=== PATIENT | male | born 1950 | race Caucasian/White ===

== ENCOUNTER 2017-02-19 07:13 | Inpatient (IN) | payer OTHER, BC ==
--- NOTE | 2017-01-17 09:49 | History and Physical ---
History & Physical Date Jan 17, 2017. Chief Complaint left knee pain History of Present Illness The patient is a 66 year old male with complaints of left knee pain, presents for preoperative evaluation prior to a Left knee replacement. Patient states that they have been having pain in this knee for many years now, which has gradually worsened, it has now gotten to the point it is affecting his daily activities including walking, standing, going up and down steps. Patient has tried and failed conservative measures including previous viscosupplementation, and PO NSAIDs with no relief. At this point in time, patient has failed conservative measures and would like to proceed with a left knee replacement. Past Medical/Surgical History Past Medical History 1. High Cholesterol 2. Hypertension 3. Insomnia Past Surgical History 1. previous knee arthroscopy 2. Hernia repair 3. appendectomy 4. left wrist fracture Home Medications: Adherence Medication Name Sig Desc Elsewhere Status taking as directed pravastatin 80 mg tablet take 1 tablet by oral route every day Y Verified taking as directed Vitamin D3 take 1 Capsule by Oral route every day Y Verified taking as directed melatonin Y Verified taking as directed Fish Oil Y Verified taking as directed ATIVAN take 2 tablet by oral route 3 times every day as needed Y Verified taking as directed aspirin 81 mg tablet,delayed release take 1 tablet by oral route every day Y Verified taking as directed Advil take 2 tablet by oral route every 6 hours as needed with food Y Verified Additional History Hepatic Disease: No Endocrine Disorder: No Kidney Disease: No Hypertension: Yes Heart Disease: No Bleeding Tendencies: No Infectious Diseases: No Allergies Coded Allergies: No Known Allergies (Unverified , 01/17/17) Physical Examination Skin: warm/dry, no rash Eyes: normal inspection, EOMI, sclerae normal ENT: normal ENT inspection, pharynx normal Head: normocephalic, atraumatic Neck: supple, no adenopathy, trachea midline Respiratory/Chest: lungs clear, normal breath sounds, no respiratory distress Cardiovascular: regular rate, rhythm, no edema, no murmur Addiitonal Comments: Left Knee Exam: Knee ROM R * Active ROM - Flexion: 100 degrees, Extension: 5 degrees, Factors: pain, Description: Active painful ROM. Knee * Inspection - Gait: Limp. Alignment - Right: neutral. Ecchymosis - Right: negative. Effusion - Right: mild. Swelling - Right: mild. Maximum tenderness - Right: Medial Joint Line. Patella exam - Crepitation - Right: mild. Patella position - Right: neutral. Knee Normal Inspection - Atrophy - Right: Absent. Skin - Right: Normal. Patella exam - Apprehension - Right: Negative. Q-angle - Right: Normal. Posterior drawer - Right: Negative. Anterior drawer - Right: Negative. Left Knee Xray: Xrays reviewed of the left knee showing findings consistent with degenerative joint disease including joint space narrowing, subchondral sclerosis and peripheral osteophyte formation. no acute bony pathology, overall varus alignment. Impression: degenerative joint disease of the left knee with no acute bony pathology noted. Diagnosis Left Knee Osteoarthritis -Further care discussed with patient and at this point in time has failed conservative measures and would like to proceed with a left total knee replacement. Plan on discharge will be home with home physical therapy. DVT prophalaxis with TEDs, SCDs and will also place on aspirin 81 mg p.o. b.i.d. for a month postop. Patient will have follow up appointment in our office two weeks post op for staple/suture removal and re-evaluation. Patient otherwise has no other questions or concerns. Past Medical History as outlined above
[2017-01-17 11:43] VITALS: BMI 39.0
--- NOTE | 2017-01-17 12:29 | PAT Medication Instructions ---
Service Date Jan 17, 2017. Current Home Medication List Aspirin (Aspirin Ec), 81 MG PO QAM Calcium Carbonate (Tums), 1 TAB PO PRN Cholecalciferol (Vitamin D3), 1 TAB PO QAM Fish Oil (Hull-3), 1 CAP PO QAM Lorazepam (Ativan), 0.5 MG PO PRN Melatonin (Kp Melatonin), 3-5 MG PO HS PRN for RN Polyethylene Glycol-Propylene (Systane), 1 DROPS OP PRN Pravastatin (Pravachol ), 80 MG PO QAM Medication Instructions For Your Scheduled Surgery - Hold the following medications 2 weeks prior to surgery: Fish Oil (Hull-3), 1 CAP PO QAM - Hold the following medications the morning of surgery: Calcium Carbonate (Tums), 1 TAB PO PRN Cholecalciferol (Vitamin D3), 1 TAB PO QAM - Take the following medications the morning of surgery with a sip of water: Pravastatin (Pravachol ), 80 MG PO QAM Polyethylene Glycol-Propylene (Systane), 1 DROPS OP PRN Lorazepam (Ativan), 0.5 MG PO PRN (if needed) Aspirin (Aspirin Ec), 81 MG PO QAM - Take the following medications as scheduled the night before surgery: Polyethylene Glycol-Propylene (Systane), 1 DROPS OP PRN Melatonin (Kp Melatonin), 3-5 MG PO HS PRN for RN Lorazepam (Ativan), 0.5 MG PO PRN (if needed) Calcium Carbonate (Tums), 1 TAB PO PRN If you have any questions please call us at [phone] or [phone] ( [place]ania) or [phone]
[2017-01-17 12:57] LABS: BASO % 0.3 %; BASO ABS # 0.02 K/uL (0-0.2); COMPLETE YES; EOS % 2.4 %; HEMATOCRIT 44.2 % (42-52); IG% 0.3 %; LYMPH % 31.2 %; LYMPH ABS # 2.17 K/uL (1.2-3.4); MEAN CELL VOLUME 90.4 fL (80-100); MEAN CORPUSCULAR HEMOGLOBIN 32.1 pg (25-34); MEAN CORPUSCULAR HGB CONC 35.5 g/dl (32-36); MEAN PLATELET VOLUME 10.9 fL (7.4-10.4); MONO % 9.9 %; NEUT % 55.9 %; PLATELET COUNT 165 K/uL (130-400); RED BLOOD COUNT 4.89 M/uL (4.7-6.1); WHITE BLOOD COUNT 6.95 K/uL (4.8-10.8)
[2017-01-17 13:00] LABS: URINE APPEARANCE CLEAR (CLEAR); URINE BILIRUBIN NEG (NEG); URINE COLOR YELLOW; URINE NITRITE NEG (NEG); URINE SPECIFIC GRAVITY 1.012 (1.000-1.030); UROBILINOGEN NEG (NEG); ZZUR CULT IF INDIC CLEAN CATCH NO
--- NOTE | 2017-01-17 13:05 | DIAGNOSTIC IMAGING REPORT ---
TWO VIEW CHEST CLINICAL HISTORY: Preoperative examination. FINDINGS: PA and lateral chest radiographs are compared to study dated 01/04/2015. The heart is top normal for projection. The examination is degraded by large body habitus. The lungs and pleural spaces are clear. There is no pneumothorax. The bony thorax appears intact. Mild degenerative changes noted in the thoracic spine. IMPRESSION: No active disease in the chest. Electronically signed by: Kin Vasquez M.D. 01/17/2017 1:04 PM Dictated Date/Time: 01/17/2017 1:03 PM
[2017-01-17 13:08] LABS: PROTHROMBIN TIME (PATIENT) 10.6 SECONDS (9.0-12.0)
[2017-01-17 13:15] LABS: BUN/CREATININE RATIO 21.4 (10-20); CALCIUM 8.7 mg/dl (8.5-10.1); CREATININE 0.94 mg/dl (0.60-1.40); POTASSIUM 4.1 mmol/L (3.5-5.1)
[2017-01-17 13:24] LABS: MANUAL MICROSCOPIC REQUIRED? NO; REVIEW REQ? NO
--- NOTE | 2017-02-11 10:36 | Anesthesiology Progress Note ---
Anesthesia Progress Note Date of Service Feb 11, 2017. Progress Notes Patient called in today stating that he has a cold. Congestion and cough started 02/08. PCP prescribed z-pack which he will be finishing today. He states he has had significant improvement in symptoms at this time. Mild residual non- productive cough. He denies chest pain, shortness of breath, fever, chills. Patient states he will contact PAT if symptoms worsen prior to surgery. Patient made aware that anesthesia will reevaluate patient AM of surgery.
[~2017-02-19] VITALS: Ht 170.2 cm; Wt 113.8 kg
[2017-02-19] VITALS (9 sets, daily range): BP systolic 109–151; BP diastolic 69–84; PULSE 63–91; TEMP 36.4–36.7; O2SAT 93–97; Ht 170.2 cm; Wt 113.8 kg
--- NOTE | 2017-02-19 06:53 | History & Physical Bridge Note ---
H&P Re-Evaluation Bridge Note: I have examined the patient, reviewed the History & Physical and in the interval since the performance of the History & Physical I have noted the following changes of clinical significance: No changes noted
[~2017-02-19 07:13] MED LIST: ACETAMINOPHEN 500 MG TAB PO SCH; ASPI81TA28 PO; ATV/1 PO; BUPIVACAINE 0.5 % 5 MG/1 ML PF 10ML VIAL ONE; CALC500C3 PO; CEFAZOLIN 3000 MG/65 ML D5W 65 ML IV SCH; CHOL1000 PO; CeleBREX 200 MG CAP PO SCH; DEXAMETHASONE 4 MG TAB PO SCH; FAMOTIDINE 20 MG TAB PO SCH; GABAPENTIN 300 MG CAP PO SCH; LACTATED RINGER'S 1000ML 1,000 ML IV SCH; LACTATED RINGER'S 1000ML 500 ML IV ONE; LACTATED RINGER'S 1000ML IV SCH; MELA1TAB5 PO; METOCLOPRAMIDE HCL 10 MG TAB PO SCH; OMEG10007 PO; POLYSOL4 OP; PRAV20TA PO; ROPIVACAINE 5MG/ML 30 ML 150 MG, BUPIVACAINE/EPINEPHR 0.5% MPF 30 ML, KETOROLAC TROMETH... INFIL SCH
[2017-02-19] MEDS ORDERED: MIDAZOLAM HCL 1 MG/ML 2ML VIAL ONE ×2 (07:31→08:31)
[2017-02-19] MEDS ORDERED: FENTANYL CITRATE INJ 50 MCG/1 ML 2 ML VIAL ONE (07:31)
[2017-02-19] MEDS ORDERED: LIDOCAINE HCL 2% 2 ML VIAL (20MG/ML) ONE (07:31)
[2017-02-19] MEDS ORDERED: PROPOFOL IV EMULSION 10 MG/ML 20 ML VIAL IV ONE (07:31)
[2017-02-19] MEDS ORDERED: MoRPHine SULFATE 10 MG/ML CARP/VIAL IV PRN ×2 (08:15→12:45)
[2017-02-19] MEDS ORDERED: MEPERIDINE HCL 25 MG/ML CARP IV PRN (08:15)
[2017-02-19] MEDS ORDERED: ONDANSETRON INJ 2 MG/ML 2 ML VIAL IV PRN ×2 (08:15→11:00)
[2017-02-19] MEDS ORDERED: ATROPINE SULFATE 0.1 MG/ML 5ML SYR IV PRN (08:15)
[2017-02-19] MEDS ORDERED: FENTANYL CITRATE INJ 50 MCG/1 ML 2 ML VIAL IV PRN (08:15)
[2017-02-19] MEDS ORDERED: EpHEDrine SULFATE INJ 50 MG/ML AMP IV PRN (08:15)
[2017-02-19] MEDS: TRANEXAMIC ACID INJ 1,000 MG in SODIUM CHLORIDE 0.9% 100ML 100 ML IV SCH ×2 (08:48→13:37)
[2017-02-19] MEDS ORDERED: ORTHO JOINT ANESTHETIC ONE (08:48)
[2017-02-19] MEDS ORDERED: POVIDONE-IODINE OP SOLN 30 ML BTL ONE (08:48)
[2017-02-19] MEDS ORDERED: BACITRACIN 50000 UNIT VIAL ONE (08:49)
--- NOTE | 2017-02-19 09:35 | Anesthesiology Progress Note ---
Anesthesia Progress Note Date of Service Feb 19, 2017. Progress Notes Spoke with patient and reviewed H/P taken in PAT. He seemed frustrated with the preop process. Attempted to ease his frustration, but he states "This is not on my agenda for today." I told him that I didn't understand what he meant by that but he then stated "nevermind." Consent was obtained for spina/block/ sedation with GA b/u. Spinal performed per anes record, but despite +CSF at depth of 4" the spinal failed, converted to GA with LMA. Adductor block was performed in preop. Surgeon aware of patient's frustration with process.
--- NOTE | 2017-02-19 10:13 | [facility] Post Operative Brief Note ---
Immediate Operative Summary Operative Date Feb 19, 2017. Pre-Operative Diagnosis Left Knee Degenerative Joint Disease Post-Operative Diagnosis Same as preoperative Procedure(s) Performed Left Total Knee Arthroplasty, Cemented Surgeon Dr. Ellis Gaston Grain Packer Surgeon(s) Javier Castillo PA-C Estimated Blood Loss 10ml Findings severe djd with varus deformity Specimens A.) Left knee bone and tissue Complication(s) None Disposition Recovery Room / PACU
[2017-02-19] MEDS ORDERED: ONDANSETRON INJ 2 MG/ML 2 ML VIAL ONE (10:20)
--- NOTE | 2017-02-19 10:50 | OPERATIVE REPORT ---
DATE OF OPERATION: 02/19/2017 PREOPERATIVE DIAGNOSIS: Severe end-stage tricompartmental degenerative joint disease, left knee. POSTOPERATIVE DIAGNOSIS: Severe end-stage tricompartmental degenerative joint disease, left knee. PROCEDURE: Left total knee arthroplasty utilizing Quintana \T\ Nephew nonblock total knee arthroplasty size 8 femur, 7 tibia, 9 poly, 35 oval patella. SURGEON: Dr. Gaston. FOOD COUNTER WORKER: Javier Castillo PA-C who was necessary for prepping, draping, retraction, and wound closure, deep fascia, subQ and skin and was necessary for the case. COMPLICATIONS: None. ESTIMATED BLOOD LOSS: 10 mL. TOURNIQUET TIME: 45 minutes. HISTORY: The patient presents as a very pleasant 66-year-old white male with severe end-stage DJD and varus alignment of his knee, presents for total knee arthroplasty after discussing risks, complications of the procedure. DESCRIPTION OF PROCEDURE: The patient was properly prepped and draped in supine position for total knee arthroplasty after identifying the appropriate surgical site. An anterior midline incision was made through the subcutaneous tissues down to the region of the extensor mechanism. A medial parapatellar incision was subsequently made. Meticulous hemostasis was obtained and performed at all times. The patella having been subluxed lateralward, medial and lateral meniscal remnants were excised. The patellar cut was then initially made and was sized to the appropriate size. After subluxing the tibia forward the appropriate meniscal fragments having been removed the distal femur was then cut first utilizing a Quintana and Nephew block. The distal femoral cuts and chamfer cuts were all made under direct visualization and the proximal tibial osteotomy cut was also made utilizing Quintana and Nephew blocks and checked with an extramedullary guide. The appropriate trial components on the femur and tibia were placed. Appropriate trial spacers were used to check flexion and extension gaps. With flexion and extension gaps being equal, the components were then subsequently after thorough irrigation and debridement lavage components were then subsequently cemented in the following order: femur, tibia and patella. Exparel was used for intraoperative anesthesia, the medial parapatellar incision was closed utilizing #1 Vicryl, subQ was closed with 2-0 Vicryl, skin was closed with skin clips. A sterile compression dressing was placed. The patient was taken to the recovery room in stable condition. Due to the complex nature of the procedure, the entire surgery was performed with the operational assistance of Javier Castillo PA-C. The assistant tennis coach, under direct supervision, was involved in the actual performance of all aspects of the surgical procedure including hemostasis, tissue retraction and incision, instrument management, patient positioning, and wound closure. I attest to the content of the Intraoperative Record and any orders documented therein. Any exceptio ns are noted below.
[2017-02-19] MEDS ORDERED: CALCIUM CARBONATE 500 MG CHEWABLE PO PRN (11:00)
[2017-02-19] MEDS ORDERED: KETOROLAC TROMETHAMINE 15 MG/ML VIAL IV. PRN (11:00)
[2017-02-19] MEDS ORDERED: ALUMINUM/MAGNESIUM/SIMETH (MAALOX MAX) 30 ML UDC PO PRN (11:00)
[2017-02-19] MEDS ORDERED: MoRPHine SULFATE 2 MG/ML CARP IV PRN (11:00)
[2017-02-19] MEDS ORDERED: MAGNESIUM HYDROXIDE SUSP 30 ML UDC PO PRN (11:00)
[2017-02-19] MEDS ORDERED: BISACODYL 10 MG SUPP PR PRN (11:00)
[2017-02-19] MEDS ORDERED: SOD PHOSPHATE/SOD BIPHOSPHATE ENEMA 132 ML BTL PR PRN (11:00)
[2017-02-19] MEDS ORDERED: LORAZEPAM 0.5 MG TAB PO PRN (11:00)
--- NOTE | 2017-02-19 11:25 | DIAGNOSTIC IMAGING REPORT ---
LEFT KNEE 1 OR 2 VIEWS ROUTINE CLINICAL HISTORY: Degenerative arthritis. Postop study COMPARISON: 01/05/2016 DISCUSSION: There are postsurgical changes of a total left knee arthroplasty and patellar resurfacing. There is a suprapatellar joint effusion. There is air in the soft tissues consistent with recent surgery. There are overlying surgical drains. There are no acute fractures. IMPRESSION: Postsurgical changes of a total left knee arthroplasty Electronically signed by: Tereso Solo M.D. 02/19/2017 11:23 AM Dictated Date/Time: 02/19/2017 11:23 AM
--- NOTE | 2017-02-19 11:45 | Anesthesiology Progress Note ---
Anesthesia Post Op Note Date & Time Feb 19, 2017 at 11:45 Vital Signs Pain Intensity: 0 Vital Signs Past 12 Hours Date Time Temp Pulse Resp B/P Pulse Ox O2 Delivery O2 Flow Rate FiO2 02/19/17 11:40 80 19 117/78 92 Nasal Cannula 02/19/17 11:30 82 14 126/76 96 Nasal Cannula 02/19/17 11:20 76 14 147/72 92 Nasal Cannula 02/19/17 11:10 81 13 132/79 98 Mask 10 02/19/17 11:00 85 12 121/71 98 Mask 10 02/19/17 10:50 36.2 91 14 115/69 95 Mask 10 02/19/17 07:42 36.7 85 18 151/82 94 Room Air Notes Mental Status: alert / awake / arousable, participated in evaluation Pt Amnestic to Procedure: Yes Nausea / Vomiting: adequately controlled Pain: adequately controlled Airway Patency, RR, SpO2: stable & adequate BP & HR: stable & adequate Hydration State: stable & adequate Neuraxial Anesthesia: was administered, sensory block resolved Anesthetic Complications: no major complications apparent Anesthetic Complications: failed SAB, GA LMA administered.
[2017-02-19] MEDS ORDERED: MoRPHine SULFATE 4 MG/ML 1 ML CARP\\VIAL IV PRN (12:45)
[2017-02-19] MEDS ORDERED: ARTIFICIAL TEARS OP SOLN OP PRN ×2 (12:45)
[2017-02-19] MEDS: D5W AND 1/2NSS + 20MEQ KCL 1,000 ML IV SCH ×2 (13:41→22:13)
[2017-02-19] MEDS: ACETAMINOPHEN 500 MG TAB PO SCH ×2 (15:00→22:12)
[2017-02-19] MEDS: CEFAZOLIN IV 2,000 MG in DEXTROSE 5% 50ML 50 ML IV SCH (15:58)
[2017-02-19] MEDS: OXYCODONE HCL IR 5 MG TAB (IMMEDIATE RELEASE) PO PRN (18:12)
[2017-02-19] MEDS ORDERED: SENNA 8.6 MG TAB PO SCH (21:00)
[2017-02-19] MEDS: OXYCODONE HCL 10 MG TABCR (OXYCONTIN) PO SCH (21:00)
[2017-02-19] MEDS: ASPIRIN 81 MG ECTAB PO SCH (21:20)
[2017-02-19] MEDS: DOCUSATE SODIUM 100 MG CAP PO SCH (21:20)
[2017-02-20] MEDS: CEFAZOLIN IV 2,000 MG in DEXTROSE 5% 50ML 50 ML IV SCH (00:11)
[2017-02-20] MEDS ORDERED: NURSING VERBAL MED ORDER ONE (01:30)
[2017-02-20] MEDS ORDERED: ZOLPIDEM TARTRATE 5 MG TAB ONE (01:41)
[2017-02-20] MEDS ORDERED: ZOLPIDEM TARTRATE 5 MG TAB PO PRN (01:45)
[2017-02-20 03:20] VITALS: BP 126/68; PULSE 72; TEMP 36.6; O2SAT 93
[2017-02-20] MEDS: OXYCODONE HCL IR 5 MG TAB (IMMEDIATE RELEASE) PO PRN ×2 (05:04→09:06)
[2017-02-20] MEDS: ACETAMINOPHEN 500 MG TAB PO SCH (05:49)
[2017-02-20 06:56] LABS: PROTHROMBIN TIME (PATIENT) 10.8 SECONDS (9.0-12.0)
[2017-02-20 07:11] LABS: BUN/CREATININE RATIO 14.6 (10-20); CALCIUM 8.2 mg/dl (8.5-10.1); POTASSIUM 4.5 mmol/L (3.5-5.1)
[2017-02-20 07:20] VITALS: BP 127/73; PULSE 72; TEMP 36.4; O2SAT 91
[2017-02-20 07:34] LABS: HEMATOCRIT 37.3 % (42-52); MEAN CELL VOLUME 89.9 fL (80-100); MEAN CORPUSCULAR HEMOGLOBIN 31.6 pg (25-34); MEAN CORPUSCULAR HGB CONC 35.1 g/dl (32-36); MEAN PLATELET VOLUME 11.5 fL (7.4-10.4); PLATELET COUNT 169 K/uL (130-400); RED BLOOD COUNT 4.15 M/uL (4.7-6.1); WHITE BLOOD COUNT 13.62 K/uL (4.8-10.8)
--- NOTE | 2017-02-20 07:48 | Orthopedic Progress Note ---
Orthopedic Progress Note Date of Service Feb 20, 2017. Subjective Post OP Day: 1 (s/p Left TKA) Reports: feeling well, pain controlled w PO medications, Denies: SOB, calf pain , chest pain, complaints, light headedness, nausea / vomiting Objective calves soft nontender, N/V intact, capillary refill less than 2 sec., dressing C /D/I, A&O x3, toes mobile, hemovac drainage (75cc/8 hours) Date Time Temp Pulse Resp B/P Pulse Ox O2 Delivery O2 Flow Rate FiO2 02/20/17 07:20 36.4 72 17 127/73 91 Room Air 02/20/17 03:20 36.6 72 18 126/68 93 Room Air 02/20/17 00:30 Room Air 02/19/17 23:41 36.4 63 14 144/70 94 Room Air 02/19/17 19:04 91 18 148/84 93 Room Air 02/19/17 16:25 95 Room Air 02/19/17 15:15 36.6 79 18 125/71 95 Nasal Cannula 2.0 02/19/17 14:20 72 17 115/73 94 Nasal Cannula 2.0 02/19/17 13:18 90 16 109/70 94 Nasal Cannula 2.0 02/19/17 12:49 81 19 112/72 97 Nasal Cannula 2.0 02/19/17 12:20 36.5 72 16 120/69 96 Nasal Cannula 2.0 02/19/17 12:20 Nasal Cannula 2.0 02/19/17 12:20 96 Nasal Cannula 2.0 02/19/17 12:00 79 13 126/77 93 Nasal Cannula 02/19/17 11:50 36.8 74 12 118/74 95 Nasal Cannula 02/19/17 11:40 80 19 117/78 92 Nasal Cannula 02/19/17 11:30 82 14 126/76 96 Nasal Cannula 02/19/17 11:20 76 14 147/72 92 Nasal Cannula 02/19/17 11:10 81 13 132/79 98 Mask 10 02/19/17 11:00 85 12 121/71 98 Mask 10 02/19/17 10:50 36.2 91 14 115/69 95 Mask 10 Laboratory Results 24 Hours: Test 02/20/17 06:20 Hematocrit 37.3 % Hemoglobin 13.1 g/dL Prothromb Time International Ratio 1.0 Prothrombin Time 10.8 SECONDS Assessment & Plan Assessment: POD #1 s/p Left TKA -pt/ot -dvt proph with rob/scd/asa -plan for dc home after PT when stable, possibly this afternoon Discharge Planning DVT Prophylaxis: TEDs, SCDs, ASA Therapy: Physical Therapy
--- NOTE | 2017-02-20 07:49 | Discharge Instructions ---
Discharge Instructions Date of Service Feb 20, 2017. Admission Reason for Admission: Left Knee Osteoarthritis Discharge Discharge Diagnosis / Problem: Left Total Knee Replacement Discharge Goals Goal(s): Decrease discomfort, Improve function, Increase independence Activity Recommendations Activity Limitations: as noted below Weightbearing Status: Left weightbearing (as tolerated) . Instructions / Follow-Up Instructions / Follow-Up ACTIVITY RECOMMENDATIONS: SELF CARE INSTRUCTIONS AFTER TOTAL KNEE REPLACEMENT A. You may need to continue a physical therapy program after discharge from the hospital. There are several options available to you. Your doctor will assist you in selecting the best one for you. 1. An out-patient facility 2 to 3 times a week for therapy or home therapy. 2. Continue working on all exercises taught to you in the hospital. Your goals should be to increase bending of your knee to 90 degrees and beyond and to fully straighten your knee. B. You may progress at your own pace from walking with a walker or crutches to a cane; then to no assistive devices. C. Make walking a part of your daily routine. Be up as much as comfortable with rest periods throughout the day. Rest with leg elevation is very important. Use the ice wrap frequently for the first 3-4 weeks. D. There are no restrictions on activities. You may ride in a car, shop, participate in patternator and all social activities. E. Wear the long elastic stockings (JESUS hose) 20 hours a day for 2 weeks after surgery. They can be removed several times a day for laundering and for a bath. F. You may shower, no tub baths until cleared by your doctor. SPECIAL CARE INSTRUCTIONS: VERY IMPORTANT TO READ AND REVIEW A. There are a few signs you need to watch for after you are home. Call [facility] if you notice any of the followin. Increased severe knee pain. Some pain is expected especially when you exercise. 2. Increased swelling in your leg or knee; pain or swelling of the calf muscle in either lower leg. 3. Any fluid drainage from the incision. 4. Shortness of breath or chest pain. B. Please call [facility] at if you have any concerns or questions about your operation or recovery. The doctor or his nurse will return your call promptly. C. You must take antibiotics before dental work, bladder, bowel or other surgery. Your doctor will provide you with a permanent care to carry describing this precaution. IMPORTANT: * REMEMBER TO TAKE ASPIRIN, 81 MG, TWICE DAILY FOR 4 WEEKS UNLESS OTHERWISE DIRECTED. THIS IS YOUR BLOOD THINNER. * HIGH RISK PATIENTS MAY BE PRESCRIBED A STRONGER BLOOD THINNER. THIS WILL BE PROVIDED AT DISCHARGE. * CALL IF INCREASED PAIN, REDNESS, DRAINAGE OR FEVER GREATER THAT 101. * WEAR JESUS HOSE 20 HOURS PER DAY FOR 2 WEEKS. * DERMABOND Prineo- This is a mesh tape dressing that is covered with glue. It should remain in place until the incision is properly healed, usually 10-14 days. This dressing is designed to naturally slough off. You may trim the excess mesh tape as it peels off. Incision may be briefly wet in a shower. Dry immediately by blotting with a clean, dry towel. Do not bath or swim until instructed by your doctor. Do not scratch, rub, or pick at the dressing. Do not apply any topical ointments or lotions until dressing is completely removed and/or instructed by your doctor. There may be a small piece of suture material at one end of your incision. Do not pull or trim this. If it is bothersome or catching on clothing, you may cover it with a band-aid. FOLLOW UP VISIT: If appointment is not already scheduled: Please call [facility] to make a follow-up appointment for 2 weeks after your surgery at . Current Hospital Diet Patient's current hospital diet: Regular Diet Discharge Diet Recommended Diet: Regular Diet Procedures Procedures Performed: Left Total Knee Arthroplasty, Cemented Pending Studies Studies pending at discharge: no Medical Emergencies . Who to Call and When: Medical Emergencies: If at any time you feel your situation is an emergency, please call 911 immediately. . Non-Emergent Contact Non-Emergency issues call your: Primary Care Provider, Surgeon . "Provider Documentation" section prepared by Javier Castillo. VTE Core Measure Inpt VTE Proph given/why not?: Other Anticoagulation (ASA 81mg po bid x 1 month), Tay Cooper, SCD's [place] Drug Monitoring Program Search Results: patient reviewed within database, no issues identified
[2017-02-20] MEDS ORDERED: OXYSR10 PO (07:52)
[2017-02-20] MEDS ORDERED: ACET-1138 PO (07:52)
[2017-02-20] MEDS ORDERED: ASPEC81 PO (07:52)
[2017-02-20] MEDS ORDERED: ONDA8TAB6 PO (07:52)
[2017-02-20] MEDS ORDERED: RXC5 PO (07:52)
[2017-02-20] MEDS ORDERED: CLB200 PO (07:52)
--- NOTE | 2017-02-20 07:55 | Discharge Summary ---
Orthopedic Discharge Summary Admission Date/Reason Feb 19, 2017 at 08:05 Left Knee Osteoarthritis. Discharge Date/Disposition Feb 20, 2017 Home Diagnosis Principal Diagnosis: left knee osteoarthritis Procedure(s) Performed Left total knee arthroplasty utilizing Quintana \T\ Nephew nonblock total knee arthroplasty size 8 femur, 7 tibia, 9 poly, 35 oval patella. Consultations NONE Medication Reconciliation New Medications: Ondansetron Hcl (Zofran) 8 Mg Tab 8 MG PO Q8 PRN for Nausea, #20 TAB Acetaminophen (Tylenol Extra Strength) 500 Mg Tab 1000 MG PO Q8, #126 TAB Aspirin (Aspirin EC Low Dose) 81 Mg Ectab 81 MG PO BID for 30 Days, #60 TAB Celecoxib (Celebrex) 200 Mg Cap 200 MG PO BID for 30 Days, #60 CAP Oxycodone HCl (Oxycontin) 10 Mg Tabcr 10 MG PO Q12, #20 Oxycodone HCl (Oxycodone HCl) 5 Mg Tab 5-10 MG PO Q4H PRN for Pain, #60 TAB Continued Medications: Calcium Carbonate (Tums) 500 Mg Chew 1 TAB PO PRN Cholecalciferol (Vitamin D3) 1,000 Unit Tab 1 TAB PO QAM for 90 Days, #90 TAB 3 Refills Fish Oil ([place]-3) 1 Ea Cap 1 CAP PO QAM, CAP Lorazepam (Ativan) 1 Mg Tab 0.5 MG PO PRN, TAB Melatonin (Kp Melatonin) 3 Mg Tab 3-5 MG PO HS PRN for RN for 30 Days, #30 TAB Polyethylene Glycol-Propylene (Systane) 1 Hanna Hanna 1 DROPS OP PRN, #30 ML 6 Refills Pravastatin (Pravachol ) 20 Mg Tab 80 MG PO QAM, TAB Discontinued Medications: Aspirin (Aspirin Ec) 81 Mg Tab 81 MG PO QAM Admission Physical Exam As per Admitting History & Physical. Hospital Course Patient was a same day admission after undergoing a successful left TKA. he tolerated the procedure well. Post-operatively, his activity was progressed and well tolerated. Please refer to daily progress notes and PT notes for complete details. After exam on 02/20/17, patient felt to be stable for discharge home with out patient PT. Patient will f/u in the office in 2 weeks for further evaluation including x-rays and incision check, sooner if having any issues or concerns. Below are pertinent labs/studies during their hospital stay: Last Vital Signs Documentation Date Time Temp Pulse Resp B/P Pulse Ox O2 Delivery O2 Flow Rate FiO2 02/20/17 07:20 36.4 72 17 127/73 91 Room Air 02/19/17 15:15 2.0 Test 02/20/17 06:20 Range/Units White Blood Count 13.62 4.8-10.8 K/uL Red Blood Count 4.15 4.7-6.1 M/uL Hemoglobin 13.1 14.0-18.0 g/dL Hematocrit 37.3 42-52 % Mean Corpuscular Volume 89.9 80-100 fL Mean Corpuscular Hemoglobin 31.6 25-34 pg Mean Corpuscular Hemoglobin Concent 35.1 32-36 g/dl RDW Standard Deviation 42.0 36.4-46.3 fL RDW Coefficient of Variation 12.8 11.5-14.5 % Platelet Count 169 130-400 K/uL Mean Platelet Volume 11.5 7.4-10.4 fL Prothrombin Time 10.8 9.0-12.0 SECONDS Prothromb Time International Ratio 1.0 0.9-1.1 Sodium Level 142 136-145 mmol/L Potassium Level 4.5 3.5-5.1 mmol/L Chloride Level 108 98-107 mmol/L Carbon Dioxide Level 30 21-32 mmol/L Anion Gap 4.0 3-11 mmol/L Blood Urea Nitrogen 15 7-18 mg/dl Creatinine 1.00 0.60-1.40 mg/dl Est Creatinine Clear Calc Drug Dose 86.4 ml/min Estimated GFR () 89.9 Estimated GFR (Non- 77.5 BUN/Creatinine Ratio 14.6 10-20 Random Glucose 135 70-99 mg/dl Calcium Level 8.2 8.5-10.1 mg/dl Discharge Instructions ACTIVITY RECOMMENDATIONS: SELF CARE INSTRUCTIONS AFTER TOTAL KNEE REPLACEMENT A. You may need to continue a physical therapy program after discharge from the hospital. There are several options available to you. Your doctor will assist you in selecting the best one for you. 1. An out-patient facility 2 to 3 times a week for therapy or home therapy. 2. Continue working on all exercises taught to you in the hospital. Your goals should be to increase bending of your knee to 90 degrees and beyond and to fully straighten your knee. B. You may progress at your own pace from walking with a walker or crutches to a cane; then to no assistive devices. C. Make walking a part of your daily routine. Be up as much as comfortable with rest periods throughout the day. Rest with leg elevation is very important. Use the ice wrap frequently for the first 3-4 weeks. D. There are no restrictions on activities. You may ride in a car, shop, participate in studio operation engineer and all social activities. E. Wear the long elastic stockings (JESUS hose) 20 hours a day for 2 weeks after surgery. They can be removed several times a day for laundering and for a bath. F. You may shower, no tub baths until cleared by your doctor. SPECIAL CARE INSTRUCTIONS: VERY IMPORTANT TO READ AND REVIEW A. There are a few signs you need to watch for after you are home. Call [facility] if you notice any of the followin. Increased severe knee pain. Some pain is expected especially when you exercise. 2. Increased swelling in your leg or knee; pain or swelling of the calf muscle in either lower leg. 3. Any fluid drainage from the incision. 4. Shortness of breath or chest pain. B. Please call [facility] at if you have any concerns or questions about your operation or recovery. The doctor or his nurse will return your call promptly. C. You must take antibiotics before dental work, bladder, bowel or other surgery. Your doctor will provide you with a permanent care to carry describing this precaution. IMPORTANT: * REMEMBER TO TAKE ASPIRIN, 81 MG, TWICE DAILY FOR 4 WEEKS UNLESS OTHERWISE DIRECTED. THIS IS YOUR BLOOD THINNER. * HIGH RISK PATIENTS MAY BE PRESCRIBED A STRONGER BLOOD THINNER. THIS WILL BE PROVIDED AT DISCHARGE. * CALL IF INCREASED PAIN, REDNESS, DRAINAGE OR FEVER GREATER THAT 101. * WEAR JESUS HOSE 20 HOURS PER DAY FOR 2 WEEKS. * DERMABOND Prineo- This is a mesh tape dressing that is covered with glue. It should remain in place until the incision is properly healed, usually 10-14 days. This dressing is designed to naturally slough off. You may trim the excess mesh tape as it peels off. Incision may be briefly wet in a shower. Dry immediately by blotting with a clean, dry towel. Do not bath or swim until instructed by your doctor. Do not scratch, rub, or pick at the dressing. Do not apply any topical ointments or lotions until dressing is completely removed and/or instructed by your doctor. There may be a small piece of suture material at one end of your incision. Do not pull or trim this. If it is bothersome or catching on clothing, you may cover it with a band-aid. FOLLOW UP VISIT: If appointment is not already scheduled: Please call [facility] to make a follow-up appointment for 2 weeks after your surgery at .
[2017-02-20] MEDS: OXYCODONE HCL 10 MG TABCR (OXYCONTIN) PO SCH ×2 (08:54→09:00)
[2017-02-20] MEDS: D5W AND 1/2NSS + 20MEQ KCL 1,000 ML IV SCH (08:55)
[2017-02-20] MEDS: DOCUSATE SODIUM 100 MG CAP PO SCH (08:55)
[2017-02-20] MEDS: ASPIRIN 81 MG ECTAB PO SCH (08:55)
[2017-02-20] MEDS ORDERED: PRAVASTATIN SOD 40 MG TAB PO SCH (09:00)
[2017-02-20] MEDS ORDERED: MULTIVITAMIN TAB PO SCH (09:00)
[2017-02-20] MEDS ORDERED: PANTOprazole SOD 40 MG TAB PO SCH (09:00)
--- NOTE | 2017-02-20 10:47 | Anesthesiology Progress Note ---
Anesthesia Post Op Note Date & Time Feb 20, 2017 at 10:47 Vital Signs Vital Signs Past 12 Hours Date Time Temp Pulse Resp B/P Pulse Ox O2 Delivery O2 Flow Rate FiO2 02/20/17 07:30 Room Air 02/20/17 07:20 36.4 72 17 127/73 91 Room Air 02/20/17 03:20 36.6 72 18 126/68 93 Room Air 02/20/17 00:30 Room Air 02/19/17 23:41 36.4 63 14 144/70 94 Room Air Notes Mental Status: alert / awake / arousable, participated in evaluation Pt Amnestic to Procedure: Yes Nausea / Vomiting: adequately controlled Pain: adequately controlled Airway Patency, RR, SpO2: stable & adequate BP & HR: stable & adequate Hydration State: stable & adequate Anesthetic Complications: no major complications apparent
[2017-02-20 10:48] VITALS: BP 127/73; PULSE 72; TEMP 36.4; O2SAT 91
[2017-02-20] MEDS ORDERED: CeleBREX 200 MG CAP PO SCH (21:00)
== END 2017-02-20 13:10 | disposition home health service (06) | DRG 470 ==
LOC: ENRESERVTM → ENRESERVDT → C.ACU 07:13 → C.3E 08:05
PROVIDERS: ADMIT Orthopaedic Surgery; ATTEND Orthopaedic Surgery
PROC: 0SRD0J9 Replacement of Left Knee Joint with Synthetic Substitute, Cemented, Open Approach (ICD-10-PCS; principal; 2017-02-19 09:15)
DX: M17.12 Unilateral primary osteoarthritis, left knee (principal); I10 Essential (primary) hypertension; E78.00 Pure hypercholesterolemia, unspecified; G47.00 Insomnia, unspecified; K21.9 Gastro-esophageal reflux disease without esophagitis; E66.9 Obesity, unspecified; Z68.39 Body mass index [BMI] 39.0-39.9, adult; Z79.82 Long term (current) use of aspirin; Z79.899 Other long term (current) drug therapy

== ENCOUNTER → 2017-08-25 | Outpatient (CLI) | payer OTHER, BC ==
[~2017-08-25] MED LIST changes: +ACET-1138 PO; -ACETAMINOPHEN 500 MG TAB PO SCH; +ASPEC81 PO; -ASPI81TA28 PO; -BUPIVACAINE 0.5 % 5 MG/1 ML PF 10ML VIAL ONE; -CEFAZOLIN 3000 MG/65 ML D5W 65 ML IV SCH; +CLB200 PO; -CeleBREX 200 MG CAP PO SCH; -DEXAMETHASONE 4 MG TAB PO SCH; -FAMOTIDINE 20 MG TAB PO SCH; -GABAPENTIN 300 MG CAP PO SCH; -LACTATED RINGER'S 1000ML 1,000 ML IV SCH; -LACTATED RINGER'S 1000ML 500 ML IV ONE; -LACTATED RINGER'S 1000ML IV SCH; -METOCLOPRAMIDE HCL 10 MG TAB PO SCH; +OXYSR10 PO; -ROPIVACAINE 5MG/ML 30 ML 150 MG, BUPIVACAINE/EPINEPHR 0.5% MPF 30 ML, KETOROLAC TROMETH... INFIL SCH; +RXC5 PO
--- NOTE | 2017-08-25 09:43 | DIAGNOSTIC IMAGING REPORT ---
RENAL ULTRASOUND CLINICAL HISTORY: Renal cysts seen on MRI. COMPARISON STUDY: None TECHNIQUE: Sonography of the kidneys and the urinary bladder was performed. FINDINGS: The right kidney measures 12.8 x 6.4 x 6.4 cm and the left measures 11.9 x 6.7 x 5.6 cm. There is no hydronephrosis. There are multiple bilateral renal cysts, the largest of which is a 3.1 cm cyst within the lower pole of the left kidney which contains a septation. No solid renal lesions are identified by sonography. There is scarring within the lower pole of the left kidney. Both ureteral jets were identified. No calculi were identified. IMPRESSION: 1. Multiple bilateral renal cysts, the largest of which is a 3.1 cm septated cyst within the lower pole of the left kidney. No solid renal lesions by sonography. 2. Suspected scarring within the lower pole of the left kidney. 3. No hydronephrosis. Electronically signed by: Ever Guerra M.D. 08/25/2017 9:41 AM Dictated Date/Time: 08/25/2017 9:39 AM
== END | disposition home or self-care (01) ==
LOC: C.ULTR 09:06
PROVIDERS: ATTEND Family Medicine
DX: Q61.02 Congenital multiple renal cysts (principal)

== ENCOUNTER → 2017-12-08 | Outpatient (CLI) | payer OTHER, BC ==
--- NOTE | 2017-12-08 13:07 | DIAGNOSTIC IMAGING REPORT ---
ULTRASOUND KIDNEYS AND BLADDER CLINICAL HISTORY: Renal cyst. COMPARISON STUDY: Renal ultrasound dated 08/25/2017. TECHNIQUE: Real-time, grayscale, and color flow sonography of the kidneys and bladder is performed. Images are reviewed in the transverse and longitudinal planes. FINDINGS: Kidneys: The kidneys are normal in size and echotexture. The right kidney measures 13.3 x 4.9 x 4.7 cm and the left kidney measures 12.4 x 5.7 x 5.4 cm. There is no hydronephrosis. No shadowing renal calculi are identified. There is no sonographic evidence of contour deforming renal mass lesion. At least 2 cysts are present in the left lower pole measuring 3.5 cm and 2.2 cm. The larger cyst is minimally complex with internal debris and a small peripheral calcification. A 1.9 cm cyst is present in the right upper pole. No perinephric fluid is identified. Bladder: The bladder is normal in appearance. Bilateral ureteral jets were seen. IMPRESSION: 1. The kidneys are normal in size and without hydronephrosis. 2. Small renal cysts are identified bilaterally, similar in appearance to 08/25/2017 examination. Electronically signed by: Kin Vasquez M.D. 12/08/2017 1:05 PM Dictated Date/Time: 12/08/2017 1:02 PM
== END | disposition home or self-care (01) ==
LOC: C.ULTR 09:26
PROVIDERS: ATTEND Internal Medicine Nephrology
DX: N28.1 Cyst of kidney, acquired (principal)

== ENCOUNTER → 2018-01-16 | Outpatient (CLI) | payer OTHER, BC ==
--- NOTE | 2018-01-16 13:01 | DIAGNOSTIC IMAGING REPORT ---
C-SPINE ROUTINE 4 OR 5 VIEWS HISTORY: Pain. Neuropathy. R29.898 Arm [id number] COMPARISON: None. FINDINGS: The cervical spine is visualized from C1 through the superior endplate of T1. There is no fracture. No subluxation. Considerable degenerative disc change throughout. Minimal grade 1 anterolisthesis C4 on C5 presumably degenerative. Mild osteophytic narrowing of the neuroforamina bilaterally. Prevertebral soft tissues and the atlantodens interval are intact. IMPRESSION: No fracture or subluxation within the cervical spine. Moderate to rather significant degenerative change throughout the mid to lower cervical region. The above report was generated using voice recognition software. It may contain grammatical, syntax or spelling errors. Electronically signed by: Javier Leos M.D. 01/16/2018 12:59 PM Dictated Date/Time: 01/16/2018 12:57 PM
== END | disposition home or self-care (01) ==
LOC: C.RADBC 12:07
PROVIDERS: ATTEND Psychiatry & Neurology Neurology
DX: R29.898 Other symptoms and signs involving the musculoskeletal system (principal)

== ENCOUNTER → 2018-03-16 | Outpatient (CLI) | payer OTHER, BC ==
[~2018-03-16] MED LIST changes: -ASPEC81 PO; +ASPI-320 PO
[2018-03-16 13:17] LABS: ALBUMIN 3.5 gm/dl (3.4-5.0); BLOOD UREA NITROGEN 14 mg/dl (7-18); CALCIUM 8.8 mg/dl (8.5-10.1); CARBON DIOXIDE 29 mmol/L (21-32); CREATININE 1.02 mg/dl (0.60-1.40); GLUCOSE 120 mg/dl (70-99); PHOSPHORUS 2.3 mg/dl (2.5-4.9); POTASSIUM 4.2 mmol/L (3.5-5.1); SODIUM 139 mmol/L (136-145)
== END | disposition home or self-care (01) ==
LOC: C.LAB1850 11:43
PROVIDERS: ATTEND Internal Medicine Nephrology
DX: N28.1 Cyst of kidney, acquired (principal)